=== PATIENT | female | born 2005 | race Caucasian/White ===

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

== ENCOUNTER 2024-03-25 23:49 | Emergency (ER) | payer BC ==
[2024-03-26 01:40] LABS: Specific Gravity 1.016 (1.005-1.030)
[2024-03-26 01:46] LABS: Specific Gravity 1.016 (1.005-1.030); Sqamous Epithelial <5 /HPF (None Seen); Urine Bacteria <20 /HPF (<20); Urine Bilirubin NEGATIVE (Negative); Urine Blood 3+ (Negative); Urine Clarity Extremely Turbid (Clear); Urine Color Light-Yellow (Yellow); Urine Culture Reflex Order NOT NEEDED; Urine Glucose NEGATIVE (Negative); Urine Ketones 1+ (Negative); Urine Micro Reflex YN NO BILL MICROSCOPIC; Urine Mucus Slight /HPF (None Seen); Urine Nitrite NEGATIVE (Negative); Urine Protein NEGATIVE (Negative); Urine RBC <5 /HPF (None Seen); Urine Urobilinogen Normal (Normal); Urine WBC <5 /HPF (<5); Urine pH 5.5 (5.0-7.0)
[2024-03-26 02:21] LABS: Absolute Lymphocytes (CBC) 2.5 K/uL (0.7-4.9); Absolute Monocytes 1.1 K/uL (0.1-1.3); Absolute Neutrophil 12.5 K/uL (1.8-8.0); Basophils % 0.2 % (0-1.3); Eosinophils % 0.3 % (0-4.4); Hematocrit 36.2 % (36.0-45.0); Hemoglobin 11.9 g/dL (12.0-15.0); Lymphocytes % 15.5 % (15.3-44.8); MCH 28.6 pg (27.0-35.0); MCHC 32.8 g/dL (32.0-36.0); MCV 87.3 fL (80-100); MPV 7.4 fL (7.6-11.3); Monocytes % 6.6 % (3.3-12.3); Neutrophils % 77.4 % (41.7-73.7); Platelets 271 thou/uL (152-406); RBC Red Blood Cell Count 4.14 M/uL (3.86-4.86); Red Cell Distribution Width 13.9 % (12.1-15.2)
[2024-03-26 02:34] LABS: Albumin 3.7 g/dL (3.4-5.0); Albumin/Globulin Ratio 0.9 (1.1-1.8); Anion Gap 9.2 mEq/L (5.0-15.0); Bilirubin Total 0.5 mg/dL (0.2-1.0); Globulin 4.2 g/dL (2.3-3.5); Potassium 3.2 mEq/L (3.5-5.1); Protein, Total 7.9 g/dL (6.4-8.2)
[2024-03-26] MEDS ORDERED: ONDANSETRON 4 MG/2 ML VIAL ONE (02:35)
[2024-03-26] MEDS ORDERED: NA CHLORIDE 0.9% 1,000 ML ONE (02:36)
[2024-03-26] MEDS ORDERED: FAMOTIDINE 20 MG/2 ML VIAL IV ONE (02:36)
[2024-03-26] MEDS ORDERED: ACETAMINOPHEN 500 MG TAB ONE (02:36)
[2024-03-26] MEDS ORDERED: KETOROLAC 30 MG/ML INJ ONE (02:36)
--- NOTE | 2024-03-26 05:37 | RAD REPORT ---
EXAM: US Pelvis Transvaginal and US Duplex Arterial/Venous of the Pelvis, Complete CLINICAL HISTORY: The patient is 18 years old and is Female; Pelvic pain and fever. TECHNIQUE: Real-time transvaginal pelvic ultrasound with image documentation. Transvaginal imagin g was used for better evaluation of the endometrium and adnexa. Real-time duplex ultrasound scan of the arterial and venous flow of the pelvis with color Doppler flow and spectral waveform analysis. COMPARISON: CT Abdomen pelvis 12/13/2022. FINDINGS: Uterus/cervix: Uterus is 5.9 x 3.7 x 2.6 cm. Endometrial thickness 2.4 mm. No myometrial mass. Right ovary: Right ovary 2.5 x 2.4 x 2.2 cm. Multiple follicles visualized, largest 0.74 cm. No torsion. Left ovary: Left ovary 3.2 x 1.6 x 1.8 cm. Multiple follicles visualized, largest 1.1 cm. No torsion. Free fluid: No free fluid. Bladder: Empty bladder which cannot be evaluated with this probe. IMPRESSION: No acute findings in the pelvis. No ovarian torsion. Electronically signed by: Terra Jones MD 03/26/2024 05:34 AM [facility] Due to temporary technical issues with the [email or web address] reporting system, reports are being signed by the in-house radiologist without review as a courtesy to ensure prompt reporting the interpreting radiologist is fully responsible for the content of the report. Transcribed Date/Time: 03/26/2024 5:36 AM
--- NOTE | 2024-03-26 06:26 | RAD REPORT ---
EXAMINATION: CT CHEST ABDOMEN PELVIS WITH IV CONTRAST INDICATION: Female, 18 years old, CHEST PAIN COMPARISON(S): CT abdomen/pelvis 12/17/2022 TECHNIQUE: CT acquisition of the chest, abdomen and pelvis following the administration of IV contras t. Coronal and sagittal reformatted images provided. This exam was performed according to departmental dose-optimization program which includes automated exposure control, adjustment of the m A and/or kV according to patient size, and/or use of iterative reconstruction technique. FINDINGS: SUPPORT DEVICES: None. LOWER NECK: Unremarkable. CHEST: Mediastinum/tori: Unremarkable appearance of the great vessels. No evident thoracic adenopathy. Unrem arkable esophagus. Residual thymic tissue. Heart: Normal size. No pericardial thickening or effusion. No coronary artery calcifications. Lungs: No pulmonary consolidation. Mild dependent airspace disease likely represents atelectasis. Kelli tral airways are clear. Pleural Space: No pleural effusion or pneumothorax. ABDOMEN AND PELVIS: Liver: Normal. Gallbladder and bile ducts: Normal. Pancreas: Normal. Spleen: Upper normal size. Adrenal glands: Normal. Kidneys and ureters: Normal. Bladder: Nondistended without evident abnormality. Reproductive organs: Unremarkable. GI tract: Normal caliber without wall thickening. Normal appendix. Vessels: Unremarkable. Lymph nodes: No evident adenopathy. Peritoneum: No evidence of ascites, fluid collection, or free air. Abdominal wall: No significant hernia. MUSCULOSKELETAL: No acute osseous abnormality. IMPRESSION: No significant abnormality of the chest, abdomen, or pelvis. Electronically signed by: Padilla Stinson MD 03/26/2024 06:22 AM [facility] Due to temporary technical issues with the PACS/[place] PER[facility] reporting system, reports are being erick d by the in-house radiologist without review as a courtesy to ensure prompt reporting the interpreting radiologist is fully responsible for the content of the report. Transcribed Date/Time: 03/26/2024 6:26 AM
--- NOTE | 2024-03-26 06:48 | EDPHYS ---
Physician Documentation [facility] Name: Molly Gordon Age: 18 yrs Sex: Female : 2005 Arrival Date: 03/25/2024 Time: 23:49 Bed 13 Private MD: ED Physician Josh Irwin HPI: 03/26 00:10 This 18 yrs old Other Race Female presents to ER via Unassigned with complaints of sp4 Fever, Nausea, Vomiting, Chest Pain, Low Back Pain. 01:33 Patient presents with 2 days of fever vomiting headache pelvic pain and chest pain. 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 - Infectious Disease History:: Denies. - Social history:: Smoking status: Reported history of juuling and/or vaping. - Family history:: not pertinent. ROS: 23:39 Constitutional: Negative for fever, chills, and weight loss, positive for fever nausea sp4 vomiting and lower back pain. 23:39 All other systems are negative, Exam: 23:39 Constitutional: This is a well developed, well nourished patient who is awake, alert, sp4 and in no acute distress. Head/Face: Normocephalic, atraumatic. Eyes: Pupils equal round and reactive to light, extra-ocular motions intact. Lids and lashes normal. Conjunctiva and sclera are not injected. Cornea within normal limits. Periorbital areas with no swelling, redness, or edema. ENT: Nares patent. No nasal discharge, no septal abnormalities noted. Tympanic membranes are normal and external auditory canals are clear. Oropharynx with no redness, swelling, or masses, exudates, or evidence of obstruction, uvula midline. Mucous membranes moist. Neck: Trachea midline, no thyromegaly or masses palpated, and no cervical lymphadenopathy. Supple, full range of motion without nuchal rigidity, or vertebral point tenderness. Chest/axilla: Normal chest wall appearance and motion. Nontender with no deformity. No lesions are appreciated. Cardiovascular: Regular rate and rhythm with a normal S1 and S2. No gallops, murmurs, or rubs. Normal PMI, no JVD. No pulse deficits. Respiratory: Lungs have equal breath sounds bilaterally, clear to auscultation and percussion. No rales, rhonchi or wheezes noted. No increased work of breathing, no retractions or nasal flaring. Abdomen/GI: Soft, with normal bowel sounds. No distension or tympany. No guarding or rebound. No evidence of tenderness throughout. Back: No spinal tenderness. No costovertebral tenderness. Skin: Warm, dry with normal turgor. Normal color with no rashes, no lesions, and no evidence of cellulitis. MS/ Extremity: Pulses equal, no cyanosis. Neurovascular intact. Full, normal range of motion. Neuro: Awake and alert, GCS 15, oriented to person, place, time, and situation. Cranial nerves II-XII grossly intact. Motor strength 5/5 in all extremities. Sensory grossly intact. Psych: Awake, alert, with orientation to person, place and time. Behavior, mood, and affect are within normal limits Vital Signs: 00:59 BP 119 / 74; Pulse 96; Resp 18; Temp 98.9; Pulse Ox 99% on R/A; Weight 64.86 kg; Height kj2 5 ft. 2 in. ; Pain 8/10; 01:55 BP 109 / 67; Pulse 83; Resp 20; Pulse Ox 100% on R/A; kj2 02:53 BP 96 / 66; Pulse 68; Resp 18; Pulse Ox 100% on R/A; kj2 04:00 BP 104 / 63; Pulse 60; Resp 18; Pulse Ox 100% on R/A; kj2 05:00 BP 100 / 68; Pulse 79; Resp 18; Pulse Ox 100% on R/A; kj2 06:00 BP 97 / 64; Pulse 64; Resp 16; Pulse Ox 99% on R/A; kj2 06:50 BP 94 / 60; Pulse 68; Resp 18; Temp 98; Pulse Ox 100% on R/A; kj2 00:59 Body Mass Index 26.15 (64.86 kg, 157.48 cm) - Percentile 84.5 % kj2 00:59 Pain Scale: Adult kj2 Dawson Coma Score: 23:39 Eye Response: spontaneous(4). Motor Response: obeys commands(6). Verbal Response: sp4 oriented(5). Total: 15. MDM: 00:11 Medical Screening Exam initiated sp4 06:36 ED course: EXAMINATION: CT CHESTABDOMEN PELVIS WITH IV CONTRAST INDICATION: Female, 18 sp4 years old, CHEST PAIN COMPARISON(S): CT abdomen/pelvis 12/17/2022 TECHNIQUE: CT acquisition of the chest, abdomen and pelvis following the administration of IV contrast. Coronal and sagittal reformatted images provided. This exam was performed according to departmental dose-optimization program which includes automated exposure control, adjustment of the mA and/or kV according to patient size, and/or use of iterative reconstruction technique. FINDINGS: SUPPORT DEVICES: None. LOWER NECK: Unremarkable. CHEST: Mediastinum/tori: Unremarkable appearance of the great vessels. No evident thoracic adenopathy. Unremarkable esophagus. Residual thymic tissue. Heart: Normal size. No pericardial thickening or effusion. No coronary artery calcifications. Lungs: No pulmonary consolidation. Mild dependent airspace disease likely represents atelectasis. Central airways are clear. Pleural Space: No pleural effusion or pneumothorax. ABDOMEN AND PELVIS: Liver: Normal. Gallbladder and bile ducts: Normal. Pancreas: Normal. Spleen: Upper normal size. Adrenal glands: Normal. Kidneys and ureters: Normal. Bladder: Nondistended without evident abnormality. Reproductive organs: Unremarkable. GI tract: Normal caliber without wall thickening. Normal appendix. Vessels: Unremarkable. Lymph nodes: No evident adenopathy. Peritoneum: No evidence of ascites, fluid collection, or free air. Abdominal wall: No significant hernia. MUSCULOSKELETAL: No acute osseous abnormality. IMPRESSION: No significant abnormality of the chest, abdomen, or pelvis.. 06:45 Differential diagnosis: viral Infection, bacterial infection, bronchitis, pneumonia sp4 UTI, gastroenteritis. Data reviewed: vital signs, nurses notes, lab test result(s), radiologic studies, CT scan, ultrasound. Consideration of Admission/Observation Escalation of care including admission/observation considered. ED course: EXAM: US Pelvis Transvaginal and US DuplexArterial/Venous of the Pelvis, Complete CLINICAL HISTORY: The patient is 18 years old and is Female; Pelvic pain and fever. TECHNIQUE: Real-time transvaginal pelvic ultrasound with image documentation. Transvaginal imaging was used for better evaluation of the endometrium and adnexa. Real-time duplex ultrasound scan of the arterial and venous flow of the pelvis with color Doppler flow and spectral waveform analysis. COMPARISON: CTAbdomen pelvis 12/13/2022. FINDINGS: Uterus/cervix: Uterus is 5.9 x 3.7 x 2.6 cm. Endometrial thickness 2.4 mm. No myometrial mass. Right ovary: Right ovary 2.5 x 2.4 x 2.2 cm. Multiple follicles visualized, largest 0.74 cm. No torsion. Left ovary: Left ovary 3.2 x 1.6 x 1.8 cm. Multiple follicles visualized, largest 1.1 cm. No torsion. Free fluid: No free fluid. Bladder: Empty bladder which cannot be evaluated with this probe. IMPRESSION: No acute findings in the pelvis. No ovarian torsion. Electronically signed by: Terra Jones MD 03/26/2024 05:34 AM . ED course: This time there is no sign of significant bacterial infection. Patient stable for discharge home with as needed medications for pain fever and additionally for nausea and vomiting. 23:41 ED course: Workup did not reveal any emergent medical condition , fever from probably sp4 acute viral illness with fever. Patient will be stable for discharge. 03/26 00:11 Order name: Influenza Screen (a \T\ B); Complete Time: 04:26 sp4 03/26 00:44 Order name: Urinalysis W/Microscopic; Complete Time: 02:29 sp4 03/26 00:44 Order name: Test, Urine; Complete Time: 02:29 sp4 03/26 01:32 Order name: CBC with Diff; Complete Time: 04:26 sp4 03/26 01:32 Order name: CMP; Complete Time: 04:26 sp4 03/26 01:32 Order name: Lipase; Complete Time: 04:26 sp4 03/26 04:29 Order name: CT Chest, Abdomen, Pelvis - W/Contrast; Complete Time: 06:36 sp4 03/26 05:34 Order name: Transvaginal Study Probe; Complete Time: 06:36 EDMS 03/26 01:32 Order name: IV Saline Lock; Complete Time: 04:17 sp4 03/26 01:32 Order name: Labs collected and sent; Complete Time: 04:17 sp4 Administered Medications: 01:55 Drug: TORadol - Ketorolac IVP 30 mg IVP once Route: IVP; Site: right antecubital; kj2 04:18 Follow up: Response: No adverse reaction kj2 02:00 Drug: Acetaminophen PO 1000 mg PO once Route: PO; kj2 04:17 Follow up: Response: No adverse reaction kj2 02:03 Drug: Ondansetron IVP 8 mg IVP once; over 2 minutes Route: IVP; Site: right antecubital;kj2 04:18 Follow up: Response: No adverse reaction kj2 02:05 Drug: Famotidine IVP 20 mg IVP once; dilute with 10 mL 0.9% NaCl; give over 2 minutes kj2 Route: IVP; Site: right antecubital; 04:17 Follow up: Response: No adverse reaction kj2 02:10 Drug: NS 0.9% IV 1000 ml IV at 1 bolus Per protocol; to be given as a bolus over 60 kj2 minutes Route: IV; Rate: 1 bolus; Site: right antecubital; 03:10 Follow up: IV Status: Completed infusion; IV Intake: 1000ml kj2 03:10 Follow up: IV Status: Completed infusion; IV Intake: 1000ml kj2 Disposition Summary: 03/26/24 06:48 Discharge Ordered Notes: Location: Home sp4 Problem: new sp4 Symptoms: have improved sp4 Condition: Stable sp4 Diagnosis - Acute viral syndrome, acute fever, acute viral gastroenteritis sp4 Followup: sp4 - With: Private Physician - When: 7 - 10 days - Reason: Recheck today's complaints Discharge Instructions: - Discharge Summary Sheet sp4 - Viral Gastroenteritis, Adult, [id number] sp4 Forms: - Patient Portal Instructions sp4 Prescriptions: - ibuprofen 600 mg Oral tablet - take 1 tablet ORAL route every 6 hours PRN fever or pain; 50 tablet; Refills: sp4 0, Product Selection Permitted - ondansetron 8 mg Oral Tablet,disintegrating - take 1 tablet ORAL route every 6 hours PRN nausea; 30 tablet; Refills: 0, sp4 Product Selection Permitted - methocarbamol 750 mg Oral tablet - take 1 tablet ORAL route 4 times per day for 3 days PRN back pain; 30 tablet; sp4 Refills: 0, Product Selection Permitted Signatures: Dispatcher [employer] Josh Fuchs MD MD sp4 Nuria Denise RN RN kj2 Corrections: (The following items were deleted from the chart) 00:11 00:11 Influenza Screen (A \T\ B)+BA.LAB.BRZ ordered. EDMS EDMS 01:33 01:33 CBC+H.LAB.BRZ ordered. EDMS EDMS 01:33 01:33 COMPREHENSIVE METABOLIC PANEL+C.LAB.BRZ ordered. EDMS EDMS 01:33 01:33 LIPASE+C.LAB.BRZ ordered. EDMS EDMS 05:34 04:31 Pelvis Complete+US.RAD.BRZ ordered. EDMS EDMS
--- NOTE | 2024-03-26 06:48 | ER ---
Nurse's Notes [facility] Name: Molly Gordon Age: 18 yrs Sex: Female : 2005 Arrival Date: 03/25/2024 Time: 23:49 Bed 13 Private MD: Diagnosis: Acute viral syndrome, acute fever, acute viral gastroenteritis Presentation: 03/26 00:59 Chief complaint: Patient states: fever, nausea, vomiting, chest pain and pain in lower kj2 back. Coronavirus screen: Client denies travel out of the [place] in the last 14 days. Ebola Screen: No symptoms or risks identified at this time. Initial Sepsis Screen: Does the patient meet any 2 criteria? No. Patient's initial sepsis screen is negative. Does the patient have a suspected source of infection? No. Patient's initial sepsis screen is negative. Risk Assessment: Do you want to hurt yourself or someone else? Patient reports no desire to harm self or others. Onset of symptoms was March 24, 2024. 00:59 Method Of Arrival: Ambulatory kj2 00:59 Acuity: PRITESH 3 kj2 Triage Assessment: 01:02 General: Appears in no apparent distress. uncomfortable, Behavior is calm, cooperative. kj2 Pain: Complains of pain in abdomen and back Pain currently is 8 out of 10 on a pain scale. Neuro: Level of Consciousness is awake, alert, obeys commands, Oriented to person, place, time, situation. Cardiovascular: Patient's skin is warm and dry. Respiratory: Airway is patent Respiratory effort is even, unlabored. GI: Reports lower abdominal pain, Pain is 8 out of 10 on a pain scale. : No signs and/or symptoms were reported regarding the genitourinary system. 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 - Infectious Disease History:: Denies. - Social history:: Smoking status: Reported history of juuling and/or vaping. - Family history:: not pertinent. Screenin:06 [facility] ED Fall Risk Assessment (Adult) History of falling in the last 3 months, kj2 including since admission No falls in past 3 months (0 pts) Confusion or Disorientation No (0 pts) Intoxicated or Sedated No (0 pts) Impaired Gait No (0 pts) Mobility Assist Device Used No (0 pt) Altered Elimination No (0 pt) Score/Fall Risk Level 0 - 2 = Low Risk Maintained a safe environment, Hourly rounding (assess needs \T\ fall precautionary measures) done. Abuse screen: Denies threats or abuse. Denies injuries from another. Nutritional screening: No deficits noted. Tuberculosis screening: No symptoms or risk factors identified. Assessment: 01:06 General: see triage assessment. kj2 02:00 Reassessment: Patient appears in no apparent distress at this time. Patient and/or kj2 family updated on plan of care and expected duration. Pain level reassessed. Patient is alert, oriented x 3, equal unlabored respirations, skin warm/dry/pink. 02:53 Reassessment: Patient appears in no apparent distress at this time. Patient and/or kj2 family updated on plan of care and expected duration. Pain level reassessed. Patient is alert, oriented x 3, equal unlabored respirations, skin warm/dry/pink. 04:00 Reassessment: Patient appears in no apparent distress at this time. Patient and/or kj2 family updated on plan of care and expected duration. Pain level reassessed. Patient is alert, oriented x 3, equal unlabored respirations, skin warm/dry/pink. 05:00 Reassessment: Patient appears in no apparent distress at this time. Patient and/or kj2 family updated on plan of care and expected duration. Pain level reassessed. Patient is alert, oriented x 3, equal unlabored respirations, skin warm/dry/pink. 06:00 Reassessment: Patient appears in no apparent distress at this time. Patient and/or kj2 family updated on plan of care and expected duration. Pain level reassessed. Patient is alert, oriented x 3, equal unlabored respirations, skin warm/dry/pink. 06:50 Reassessment: Patient appears in no apparent distress at this time. Patient and/or kj2 family updated on plan of care and expected duration. Pain level reassessed. Patient is alert, oriented x 3, equal unlabored respirations, skin warm/dry/pink. Vital Signs: 00:59 BP 119 / 74; Pulse 96; Resp 18; Temp 98.9; Pulse Ox 99% on R/A; Weight 64.86 kg; Height kj2 5 ft. 2 in. ; Pain 8/10; 01:55 BP 109 / 67; Pulse 83; Resp 20; Pulse Ox 100% on R/A; kj2 02:53 BP 96 / 66; Pulse 68; Resp 18; Pulse Ox 100% on R/A; kj2 04:00 BP 104 / 63; Pulse 60; Resp 18; Pulse Ox 100% on R/A; kj2 05:00 BP 100 / 68; Pulse 79; Resp 18; Pulse Ox 100% on R/A; kj2 06:00 BP 97 / 64; Pulse 64; Resp 16; Pulse Ox 99% on R/A; kj2 06:50 BP 94 / 60; Pulse 68; Resp 18; Temp 98; Pulse Ox 100% on R/A; kj2 00:59 Body Mass Index 26.15 (64.86 kg, 157.48 cm) - Percentile 84.5 % kj2 00:59 Pain Scale: Adult kj2 Dawson Coma Score: 23:39 Eye Response: spontaneous(4). Motor Response: obeys commands(6). Verbal Response: sp4 oriented(5). Total: 15. ED Course: 03/25 23:52 Patient arrived in ED. im 12 00:10 Josh Irwin MD is Attending Physician. sp4 00:59 Nuria Denise, SUDHEER is Primary Nurse. kj2 01:00 Patient has correct armband on for positive identification. Bed in low position. Call kj2 light in reach. Adult w/ patient. Provided Education on: call light. 01:00 Inserted saline lock: 20 gauge in right antecubital area, using aseptic technique. kj2 Blood collected. Flushed with 10 mL NS. 01:01 Triage completed. kj2 01:07 Arm band placed on Patient placed in an exam room, on a stretcher. kj2 01:07 No provider procedures requiring assistance completed. kj2 05:34 Transvaginal Study Probe In Process Unspecified. EDMS 05:39 CT Chest, Abdomen, Pelvis - W/Contrast In Process Unspecified. EDMS 06:54 IV discontinued, intact, bleeding controlled, No redness/swelling at site. Pressure kj2 dressing applied. Administered Medications: 01:55 Drug: TORadol - Ketorolac IVP 30 mg IVP once Route: IVP; Site: right antecubital; kj2 04:18 Follow up: Response: No adverse reaction kj2 02:00 Drug: Acetaminophen PO 1000 mg PO once Route: PO; kj2 04:17 Follow up: Response: No adverse reaction kj2 02:03 Drug: Ondansetron IVP 8 mg IVP once; over 2 minutes Route: IVP; Site: right antecubital;kj2 04:18 Follow up: Response: No adverse reaction kj2 02:05 Drug: Famotidine IVP 20 mg IVP once; dilute with 10 mL 0.9% NaCl; give over 2 minutes kj2 Route: IVP; Site: right antecubital; 04:17 Follow up: Response: No adverse reaction kj2 02:10 Drug: NS 0.9% IV 1000 ml IV at 1 bolus Per protocol; to be given as a bolus over 60 kj2 minutes Route: IV; Rate: 1 bolus; Site: right antecubital; 03:10 Follow up: IV Status: Completed infusion; IV Intake: 1000ml kj2 03:10 Follow up: IV Status: Completed infusion; IV Intake: 1000ml kj2 Medication: 01:07 VIS not applicable for this client. kj2 Intake: 03:10 IV: 1000ml; Total: 1000ml. kj2 03:10 IV: 1000ml; Total: 2000ml. kj2 Outcome: 06:48 Discharge ordered by . sp4 06:54 Discharged to home ambulatory, with family, kj2 06:54 Condition: stable 06:54 Discharge instructions given to patient, family, Instructed on discharge instructions, follow up and referral plans. Demonstrated understanding of instructions, follow-up care, 07:04 Patient left the ED. kj2 Signatures: Dispatcher [employer] Josh Fuchs MD MD sp4 Viktoriya Arellano Krystal, RN RN kj2 Corrections: (The following items were deleted from the chart) 05:34 05:12 In radiology for Pelvis Complete+US.RAD.BRZ. EDMS EDMS
[2024-03-26 07:35] VITALS: BP 94/60; TEMP 98; O2SAT 100
== END 2024-03-26 07:04 | disposition home or self-care (01) ==
LOC: ER 23:49
DX: B34.9 Viral infection, unspecified (principal); A08.4 Viral intestinal infection, unspecified
CPT/HCPCS: 96361; 85025; 81001; 36415; 81025; 83690; 80053; 87804 ×2; 71260; 74177; 76830; 96375; 96374; 99284; Q9967; J2405; J7030